=== PATIENT | female | born 1965 | race Caucasian/White ===

== ENCOUNTER → 2019-07-09 | Outpatient (CLI) | payer OTHER, MEDICARE ==
[~2019-07-09] MED LIST: AMLODIPINE BESYL5 MG PO; ESTRADIOL1 MG PO; IOPAMIDOL 370 MG/ML 200 ML INFUS..BTL INJ ONE; LASIX20 MG PO; LEVEMIR100 UNIT/1; LEVEMIR100 UNIT/1 SQ; LOMOTIL TABLET1 EACH PO; MEDROL4 MG/DOSE- PO; METOPROLOL SUCC25 MG PO; METRONIDAZOLE500 MG PO; NORCO 10-325 T1 EACH PO; NOVOLOG100 UNIT/1; SODIUM CHLORIDE 0.9% 50ML 50 ML ONE; SYNTHROID50 MCG; SYNTHROID50 MCG PO; ZOFRAN ODT4 MG PO
[2019-07-09 11:05] LABS: BLOOD UREA NITROGEN 11 mg/dL (7-26); BUN/CREATININE RATIO 15 (6-25); CREATININE, SERUM 0.73 mg/dL (0.57-1.11); EST GLOMERULAR FILTRATION RATE > 60 ML/MIN (60-)
--- NOTE | 2019-07-09 16:57 | Diagnostic Imaging Report ---
CT of the abdomen and pelvis History: Chronic diarrhea, weight loss Comparison: None available. Technique: Multidetector CT scanning of the abdomen and pelvis was performed from the level of the lung bases to the inferior ramus without contrast. DOSE REDUCTION: The examination was performed according to departmental dose-optimization program which includes automated exposure control, adjustment of the mA and/or kV according to patient size and/or use of iterative reconstruction technique. Discussion: The lung bases are clear. There is an incompletely characterized 2.1 x 1.0 hypoattenuating subcapsular extraparenchymal lesion at the posterior right hepatic lobe. The gallbladder is present and nondistended. No radiopaque gallstones are identified. There is no intrahepatic or extrahepatic ductal dilatation. The spleen is within normal limits. The bilateral adrenal glands are unremarkable. There is fatty replacement of the pancreas. No pancreatic ductal dilatation is identified. The kidneys are normal in size and enhance symmetrically. No renal parenchymal lesions are identified. There is no hydroureteronephrosis. No renal calculi are identified. The stomach, small, and large bowel are nondistended. There is no evidence of obstruction. The appendix is not identified. The distal sigmoid colon demonstrates mild wall thickening which may be secondary to postradiation changes. There are scattered colonic diverticula without evidence of acute diverticulitis. The abdominal aorta is of normal course and caliber. There is no free intraperitoneal air or ascites. The uterus is surgically absent. The urinary bladder is within normal limits. No enlarged abdominal or retroperitoneal lymph nodes are identified. There are no acute osseous abnormalities. IMPRESSION: 1. Indeterminate 2.1 x 1.0 cm hypoattenuating subcapsular posterior right hepatic lobe lesion. Recommend further evaluation with liver mass protocol MRI. 2. There is mild wall thickening of the distal sigmoid colon which may be secondary to post radiation changes. 3. Status post hysterectomy. Signed by: Brandon Rosario MD on 07/09/2019 4:54 PM
== END ==
LOC: CT 09:53
PROVIDERS: ATTEND Internal Medicine Gastroenterology
DX: E11.9 Type 2 diabetes mellitus without complications (principal); K52.9 Noninfective gastroenteritis and colitis, unspecified; R63.4 Abnormal weight loss; Z68.24 Body mass index [BMI] 24.0-24.9, adult
CPT/HCPCS: 36415; 36569; 74177; 82565; 84520; Q9967; 36568

== ENCOUNTER → 2020-04-27 | Outpatient (CLI) | payer OTHER, MEDICARE ==
[~2020-04-27] MED LIST changes: +GADOBENATE DIMEGLUMINE 1 ML IV ONE; -IOPAMIDOL 370 MG/ML 200 ML INFUS..BTL INJ ONE
[2020-04-27 12:52] LABS: BLOOD UREA NITROGEN 14 mg/dL (7-26); BUN/CREATININE RATIO 20 (6-25); EST GLOMERULAR FILTRATION RATE > 60 ML/MIN (60-)
--- NOTE | 2020-04-28 12:31 | Diagnostic Imaging Report ---
EXAM: MRI of the abdomen with and without contrast. INDICATION: ^ABN CT/MALIG TUMOR OF CERVIX/ANEMIA COMPARISON: CT abdomen pelvis 07/09/2019. TECHNIQUE: Multiplanar and multisequence imaging was performed of the abdomen. T1 and T2-weighted images were obtained with and without contrast. T1-weighted in and [id number] , Dynamic, post gadolinium T1-weighted spoiled gradient echo scans. IV Contrast: 10 cc of gadolinium Oral Contrast: None. Medications: None Discussion: Exam is limited motion artifact. LOWER THORAX: Unremarkable. HEPATOBILIARY: Previously seen lesion within segment 6 of the liver on prior CT exam is not visualized. No focal hepatic lesions. No biliary ductal dilation. GALLBLADDER: No radio-opaque stones or sludge. No wall thickening. SPLEEN: No splenomegaly. PANCREAS: No focal masses or ductal dilatation. ADRENALS: No adrenal nodules KIDNEYS/URETERS: Kidneys enhance symmetrically. No hydronephrosis. No cystic or solid mass lesions. No stones. GI TRACT: No abnormal distention, wall thickening, or evidence of bowel obstruction. LYMPH NODES: No lymphadenopathy. VESSELS: Portal vein, splenic veins appear mesenteric vein are patent. Mild metastatic changes are noted in the abdominal aorta and branch vessels. No evidence of aneurysmal dilation. PERITONEUM / RETROPERITONEUM: No free air or fluid. BONES: Unremarkable. SOFT TISSUES: Unremarkable. Impression: Previously seen hepatic lesion within segment 6 of the liver is not identified on this exam. Exam is mildly limited secondary to motion artifact. Consider subsequent follow-up exam with CT with liver mass protocol. Otherwise no findings to suggest intra-abdominal metastatic disease. Signed by: Rene Borja MD on 04/28/2020 12:27 PM
== END ==
LOC: MRI 12:13
PROVIDERS: ATTEND Internal Medicine Gastroenterology
DX: K52.9 Noninfective gastroenteritis and colitis, unspecified (principal); E10.9 Type 1 diabetes mellitus without complications; R93.89 Abnormal findings on diagnostic imaging of other specified body structures; C53.9 Malignant neoplasm of cervix uteri, unspecified; D64.9 Anemia, unspecified; Z68.24 Body mass index [BMI] 24.0-24.9, adult
CPT/HCPCS: 36415; 74183; 82565; 84520; A9577